=== PATIENT | male | born 1965 | race Caucasian/White ===

== ENCOUNTER → 2016-11-29 | Outpatient (CLI) | payer BC ==
--- NOTE | 2016-11-29 09:41 | US ---
EXAMINATION TYPE: US prostate transrectal DATE OF EXAM: 11/29/2016 9:21 AM COMPARISON: NONE CLINICAL HISTORY: R30.0 dysuria. This examination was performed using the transrectal probe. EXAM MEASUREMENTS: Gland Size: 4.2 x 1.8 x 5.1cm Volume: 20.2 Predicted PSA: 2.4 Actual PSA (if available):exam for dysuria TECHNOLOGIST IMPRESSION: Some calcifications seen at the apex in the peripheral zone, heavily calcif ied central zone, no distinct masses seen. Seminal vesicles are felt within normal limits on initial images. Prostate gland is normal in size. S ome central zone calcifications are present. No worrisome peripheral zone nodule is seen. IMPRESSION: Prostate is within normal limits in size, no worrisome nodules identified.
--- NOTE | 2016-11-29 09:43 | US ---
EXAMINATION TYPE: US renals and bladder DATE OF EXAM: 11/29/2016 9:00 AM COMPARISON: NONE CLINICAL HISTORY: N20.0 stone. Dysuria. EXAM MEASUREMENTS: Right Kidney: 10.1 x 5.4 x 5.1 cm Left Kidney: 9.9 x 5.3 x 5.2 cm TECHNOLOGIST IMPRESSION: Right Kidney: There is nonspecific 4 mm hyperechoic focus lower pole level right kidney to reflect sm all nonobstructing calculus. Left Kidney: inferior pole obscured by bowel gas, no hydro or mass seen Bladder: wnl Bilateral Jets seen: Yes There is no evidence for hydronephrosis at this point in time. No masses are identified on images sa rohith. The urinary bladder is anechoic. Bilateral ureteral jets are seen. IMPRESSION: No hydronephrosis is evident bilaterally. Possible 4 mm nonobstructing right-sided renal calculus low er pole level. Consider CT correlation/confirmation.
== END | disposition home or self-care (01) ==
LOC: RADUSMAIN 08:17
PROVIDERS: ATTEND Family Medicine
DX: N20.0 Calculus of kidney (principal); R30.0 Dysuria
CPT/HCPCS: 76770; 76872

== ENCOUNTER → 2018-04-09 | Outpatient (CLI) | payer BC ==
--- NOTE | 2018-04-09 14:37 | US ---
EXAMINATION TYPE: US kidneys/renal and bladder DATE OF EXAM: 04/09/2018 COMPARISON: Prior renal ultrasound November 29, 2016 CLINICAL HISTORY: N20.0 Calculus of kidney. hx of renal stones and just diagnosed with renal infectio ns. Right flank pain. EXAM MEASUREMENTS: Right Kidney: 10.2 x 5.7 x 5.6 cm Left Kidney: 11.2 x 4.9 x 5.5 cm Right Kidney: Mild hydronephrosis. Two echogenic foci seen. 1- lower pole, nonshadowing - 0.7 x 0.4 cm. 2- Mid medial pole seen in ureter, shadowing = 0.9 x 0.9 cm Left Kidney: wnl Bladder: distended, wnl as visualized Bilateral Jets not seen There is Mild right-sided hydronephrosis. Suspect right-sided renal calculi. No masses are identified on imag es saved. The urinary bladder is anechoic. Left ureter jet is seen on images saved. IMPRESSION: Right-sided nephrolithiasis suspected with new mild right-sided hydronephrosis, cannot exclude obstru cting calculus. Consider CT confirmation.
== END ==
LOC: RADUSWWP 13:28
PROVIDERS: ATTEND Family Medicine
DX: N13.30 Unspecified hydronephrosis (principal)
CPT/HCPCS: 76770

== ENCOUNTER → 2019-06-25 | Outpatient (CLI) | payer BC ==
--- NOTE | 2019-06-25 17:57 | US ---
EXAMINATION TYPE: US kidneys/renal and bladder DATE OF EXAM: 06/25/2019 COMPARISON: 04/09/2018 CLINICAL HISTORY: 53-year-old male N20.0 kidney stone. TECHNIQUE: Multiple sonographic images of the kidneys and bladder are obtained. FINDINGS: EXAM MEASUREMENTS: Right Kidney: 11.9 x 5.9 x 6.3 cm with a centrally located 1.6 x 1.5 x 1.0 cm shadowing calculus in the renal collecting system causing mild hydronephrosis. Left Kidney: 12.7 x 5.5 x 5.6 cm without hydronephrosis. Bladder: wnl Bilateral Jets seen: Yes IMPRESSION: 1. A large central 1.6 cm right renal calculus located within the collecting system causing mild hydr onephrosis. 2. Partial obstruction is suggested given that the right ureteral jet is maintained.
== END | disposition home or self-care (01) ==
LOC: RADUSWWP 15:32
PROVIDERS: ATTEND Family Medicine
DX: N13.2 Hydronephrosis with renal and ureteral calculous obstruction (principal)
CPT/HCPCS: 76770

== ENCOUNTER → 2019-07-05 | Outpatient (CLI) | payer BC ==
--- NOTE | 2019-07-06 08:19 | CT ---
EXAMINATION TYPE: CT abdomen pelvis wo con DATE OF EXAM: 07/05/2019 HISTORY: renal stone, RT side pain, abnormal ultrasound. CT DLP: 382.90 mGycm. Automated Exposure Control for Dose Reduction was Utilized. TECHNIQUE: CT scan of the abdomen and pelvis is performed without oral or IV contrast. COMPARISON: Renal ultrasound June 25, 2019 FINDINGS: Within the limitations of a non-contrast study, the following observations are made. LUNG BASES: No significant abnormality is appreciated. LIVER/GB: No significant abnormality is appreciated. PANCREAS: No significant abnormality is seen. SPLEEN: No significant abnormality is seen. ADRENALS: No significant abnormality is seen. KIDNEYS: No left-sided renal calculi or hydronephrosis. Confirmation of central right renal calculus and collecting system measuring 13 mm long axis axial image 52 causing mild to moderate pyelocaliecta sis. There is mild asymmetric right-sided at least proximal hydroureter without obstructing ureteral calculus seen. No intraluminal calculus in the bladder is present. BOWEL: Sigmoid colonic diverticulosis is present. Incidental normal-appearing appendix from the cecum . No suspicious small or large bowel dilatation. Suboptimal evaluation of bowel without dedicated ent gen contrast. Mild wall thickening sigmoid colon is nonspecific. GENITAL ORGANS: Some central calcifications and prostate gland measuring upper limits of normal in si ze. LYMPH NODES: No greater than 1cm abdominal or pelvic lymph nodes are appreciated. OSSEOUS STRUCTURES: Moderate disc space narrowing with secondary phenomenon L5-S1 level. Additional m oderate multilevel spurring throughout the thoracolumbar spine. Mild to moderate narrowing and spurri ng of both hip joints. OTHER: No significant additional abnormality is seen. IMPRESSION: Findings correlate with ultrasound. There is confirmation of 1.3 cm right renal collectin g system stone causing mild to moderate hydronephrosis. Advise urology referral to assess for lithotr ipsy.
== END | disposition home or self-care (01) ==
LOC: RADCTMAIN 16:51
PROVIDERS: ATTEND Physician Assistant
DX: N20.0 Calculus of kidney (principal); N13.30 Unspecified hydronephrosis
CPT/HCPCS: 74176

== ENCOUNTER → 2019-07-28 | Outpatient (CLI) | payer BC ==
[2019-07-28 08:30] LABS: Basophils # (A) 0.1 k/uL (0-0.2); Basophils % (A) 1 %; Eosinophils # (A) 0.4 k/uL (0-0.7); Eosinophils % (A) 6 %; HCT 40.7 % (39.0-53.0); HGB 14.1 gm/dL (13.0-17.5); Lymphocytes # (A) 1.3 k/uL (1.0-4.8); Lymphocytes % (A) 21 %; MCH 30.2 pg (25.0-35.0); MCHC 34.5 g/dL (31.0-37.0); MCV 87.4 fL (80.0-100.0); Mean Platelet Volume 5.1; Monocytes # (A) 0.4 k/uL (0-1.0); Monocytes % (A) 6 %; Neutrophils % (A) 63 %; Platelet Count 259 k/uL (150-450); RBC 4.66 m/uL (4.30-5.90); RDW 13.7 % (11.5-15.5); WBC 6.3 k/uL (3.8-10.6)
[2019-07-28 08:34] LABS: African American GFR (CKD) >90 (>60 ml/min/1.73 sqM); Anion Gap 12 mmol/L; Blood Urea Nitrogen 18 mg/dL (9-20); Calcium 9.3 mg/dL (8.4-10.2); Carbon Dioxide 23 mmol/L (22-30); Chloride 107 mmol/L (98-107); Glucose 95 mg/dL (74-99); Potassium 4.4 mmol/L (3.5-5.1); Sodium 142 mmol/L (137-145)
[2019-07-28 08:43] LABS: Appearance,Urine Clear (Clear); Bilirubin,Urine Negative (Negative); Blood,Urine Trace (Negative); Color,Urine Light Yellow; Glucose,Urine (UA) Negative (Negative); Ketones,Urine Negative (Negative); Leukocyte Esterase,Urine Trace (Negative); Mucus,Urine Rare /hpf; Nitrite,Urine Negative (Negative); Protein,Urine Negative (Negative); RBC,Urine 2 /hpf (0-5); Specific Gravity,Urine 1.009 (1.001-1.035); Urobilinogen,Urine <2.0 mg/dL (<2.0); WBC,Urine 4 /hpf (0-5)
== END | disposition home or self-care (01) ==
LOC: LABPAT 07:50
PROVIDERS: ATTEND Urology
DX: Z01.812 Encounter for preprocedural laboratory examination (principal); N20.0 Calculus of kidney; N39.0 Urinary tract infection, site not specified
CPT/HCPCS: 80048; 81001; 85025; 87086

== ENCOUNTER 2019-08-04 09:24 | Day surgery (SDC) | payer BC ==
--- NOTE | 2019-08-03 19:53 | P.GSHP ---
History of Present Illness H&P Date: 08/03/19 54 yo male with recurrent kidney infections witha 15 mm right renal stone Treatment options were discussed Because of the infections and the stone size he comes for a right pcnl - Constitutional Constitutional: Denies chills, Denies fever - EENT Eyes: denies blurred vision, denies pain Ears, nose, mouth and throat: Denies headache, Denies sore throat - Cardiovascular Cardiovascular: Denies chest pain, Denies shortness of breath - Respiratory Respiratory: Denies cough, Denies 7 - Gastrointestinal Gastrointestinal: Denies abdominal pain, Denies diarrhea, Denies nausea, Denies vomiting - Genitourinary (Female) Genitourinary: Denies dysuria, Denies hematuria - Genitourinary (Male) Genitourinary: Denies dysuria, Denies hematuria - Musculoskeletal Musculoskeletal: Denies myalgias - Integumentary Integumentary: Denies pruritus, Denies rash - Neurological Neurological: Denies numbness, Denies weakness - Psychiatric Psychiatric: Denies anxiety, Denies depression - Endocrine Endocrine: Denies fatigue, Denies weight change Past Medical History Additional Past Medical History / Comment(s): KIDNEY PAIN FOR THE PAST TWO YEARS. History of Any Multi-Drug Resistant Organisms: None Reported Past Surgical History: Back Surgery Additional Past Surgical History / Comment(s): LUMBAR SURGERY. Past Anesthesia/Blood Transfusion Reactions: No Reported Reaction Past Psychological History: No Psychological Hx Reported Smoking Status: Former smoker Past Alcohol Use History: None Reported Additional Past Alcohol Use History / Comment(s): QUIT ABOUT 2008, SMOKED ABOUT 1/2 PPD. Past Drug Use History: None Reported - Past Family History Mother Family Medical History: No Reported History Medications and Allergies Home Medications Medication Instructions Recorded Confirmed Type Ibuprofen 200 - 400 mg PO Q6H PRN 08/02/19 08/02/19 History Sulfamethox-Tmp 800-160Mg [Bactrim 1 tab PO DAILY 08/02/19 08/02/19 History DS 800-160 mg] Tamsulosin [Flomax] 0.4 mg PO DAILY 08/02/19 08/02/19 History Allergies Allergy/AdvReac Type Severity Reaction Status Date / Time No Known Allergies Allergy Verified 08/02/19 10:52 Surgical - Exam - General well developed, no distress - Eyes PERRL - ENT no hearing loss - Neck no masses - Respiratory normal expansion, normal respiratory effort - Cardiovascular Rhythm: regular - Abdomen Abdomen: soft, non tender - Genitourinary normal penis with no external lesions, testicles present - Integumentary no rash, no growths - Neurologic normal coordination, normal sensation - Musculoskeletal normal gait, normal posture - Psychiatric oriented to time, oriented to person, oriented to place, speech is normal, memory intact Results - Imaging CT scan - abdomen: report reviewed, image reviewed CT scan - pelvis: report reviewed, image reviewed Assessment and Plan Assessment: Impression: Right renal stone, infected Plan: RIght PCNL
[~2019-08-04 09:24] MED LIST: AMPICILLIN 1,000 MG in SODIUM CHLORIDE 0.9% 50 ML IVPB ONE; DEXAMETHASONE SOD PHOSPHATE 10 MG/ML 1 ML VIAL IV ONE; GENTAMICIN 100 MG in SODIUM CHLORIDE 0.9% 100 ML IVPB ONE; HYDROmorphone 0.5 MG/0.5 ML SYRINGE IVP PRN; LIDOCAINE 1% 20 ML VIAL (10MG/ML) FOR IV START INTRADERMA PRN; ONDANSETRON 4 MG/2 ML VIAL IVP ONE; ONDANSETRON 4 MG/2 ML VIAL IVP PRN
--- NOTE | 2019-08-04 09:39 | XR ---
EXAMINATION TYPE: XR KUB DATE OF EXAM: 08/04/2019 COMPARISON: 07/05/2019 CT HISTORY: Presurgical evaluation for renal calculus. TECHNIQUE: KUB projection of the supine abdomen was obtained FINDINGS: Approximately 1.2 x 0.8 cm slight hyperdensity in the region of the right main collecting s ystem correlates with the prior CT of 07/05/2019. This is somewhat ill-defined given the overlying torey l. Lung bases are well aerated. Moderate degenerative changes of the spine. Calcified degenerative ut erine leiomyomas and phleboliths are seen. Moderate degenerative changes of the hip joints. IMPRESSION: 1.2 x 0.8 cm right renal calculus near the expected location of the right renal sinus as seen on the prior CT of 07/05/2019.
[2019-08-04] MEDS: LACTATED RINGERS 1,000 ML IV SCH (11:29)
[2019-08-04] MEDS ORDERED: ePHEDrine SULFATE/0.9% NACL/PF 50 MG/5 ML SYRINGE IV ONE (12:11)
[2019-08-04] MEDS ORDERED: LIDOCAINE 1% INJ 10MG/ML (20 ML MDV) ONE (12:11)
[2019-08-04] MEDS ORDERED: NEOSTIGMINE 1 MG/ML 10 ML VIAL ONE (12:11)
[2019-08-04] MEDS ORDERED: PROPOFOL 10 MG/ML 20 ML VIAL IV ONE (12:11)
[2019-08-04] MEDS ORDERED: fentaNYL (PF) 50 MCG/ML 2 ML AMP ONE (12:11)
[2019-08-04] MEDS ORDERED: ROCURONIUM BROMIDE 10 MG/ML 10 ML VIAL IV ONE (12:11)
[2019-08-04] MEDS ORDERED: SUCCINYLCHOLINE CHLORIDE 100 MG/5 ML SYR IV ONE (12:11)
[2019-08-04] MEDS ORDERED: MIDAZOLAM 2 MG/2 ML VIAL ONE (12:11)
[2019-08-04] MEDS ORDERED: PHENYLEPHRINE-0.9% NACL SYG 1 MG/10 ML SYRINGE ONE (12:11)
[2019-08-04] MEDS ORDERED: GLYCOPYRROLATE 0.2 MG/ML 2 ML VIAL ONE (12:11)
[2019-08-04] MEDS ORDERED: IOPAMIDOL-370 50ML BTL IRRIGATION ONE (12:39)
[2019-08-04] MEDS ORDERED: LACTATED RINGERS 1,000 ML IV ONE ×2 (13:13)
[2019-08-04] MEDS ORDERED: ONDANSETRON 4 MG/2 ML VIAL IVP PRN (14:35)
[2019-08-04] MEDS ORDERED: MAG HYDROX/AL HYDROX/SIMETH 30 ML CUP PO PRN (14:35)
[2019-08-04] MEDS ORDERED: NALOXONE 0.4 MG/ML 1 ML VIAL IV PRN (14:37)
--- NOTE | 2019-08-04 14:42 | P.OP ---
Date of Procedure: 08/04/19 Preoperative Diagnosis: Right renal stone, chronic urine infection Postoperative Diagnosis: Same Procedure(s) Performed: Cystoscopy, placement of ureteral catheter left, percutaneous nephrostomy ((Dr. Gilberto Covarrubias) percutaneous nephrostolithotomy with ultrasound placement of 8 J nephrostomy Anesthesia: IDA Surgeon: Earl Hu Estimated Blood Loss (ml): 200 Pathology: other (Stone) Condition: stable Disposition: PACU Indications for Procedure: The patient is 54. He has a 13 mm right renal pelvic stone and a very complicated delicate intrarenal collecting system. He has had a chronic infection. I suspect the stone was cause of the infection. We discussed treatment options. I felt was important to liberate the patient of the stone completely. In that light he comes for percutaneous nephrostolithotomy, right Description of Procedure: The patient is brought to the operating suite. He is given a successful general endotracheal anesthesia. On the transport gurney cystoscopy and this performed with a 22-Belarusian sheath Foroblique lens. The right ureteral orifice is identified. An 035 wires passed through the right ureteral orifice. I removed the cystoscope and over the wires passed a 5-Belarusian occluding balloon catheter cured to a 16-Belarusian Rodriguez. The patient is placed in prone position with care to airways and extremities. Dr. Covarrubisa of radiology performed percutaneous access to the right lower pole calyx. The stone completely occludes each major infundibulum. Once we can't access we dilate the tract to 30-Belarusian. Pass a rigid scope into the collecting system and remove clot. Through the rigid scope the ultrasonic lithotripter is used to break up the stone into tiny fragments and either grab or suction out. I then pass a flexible cystoscopy the scope through the collecting system and identify a stone in an upper pole calyx which is grasped with a 1.9 stone basket. Ended the procedure there is no remaining stone. 8J nephrostomy tube was placed. The patient is awakened and returned recovery room good condition. He tolerated the procedure well be placed in the hospital postoperatively. Blood loss is approximately 200 mL.
[2019-08-04] MEDS ORDERED: HYDROmorphone PCA 10 MG/50 ML BAG IV PRN (15:30)
[2019-08-04 16:33] VITALS: BMI 27.6
[2019-08-04] MEDS: DEXTROSE 5%-0.45% NACL 1,000 ML IV SCH (16:37)
[2019-08-04] MEDS: ACETAMINOPHEN TAB 325 MG TAB PO PRN (18:36)
[2019-08-05] MEDS: ACETAMINOPHEN TAB 325 MG TAB PO PRN ×2 (00:16→09:40)
[2019-08-05] MEDS: DEXTROSE 5%-0.45% NACL 1,000 ML IV SCH ×2 (00:17→10:37)
[2019-08-05] MEDS: LACTATED RINGERS 1,000 ML IV SCH (01:18)
--- NOTE | 2019-08-05 06:41 | P.DS ---
Providers Attending physician: Earl Hu Primary care physician: [facility] Course: The patient was admitted to the hospital 08/14/2019 for a right percutaneous nephrostolithotomy. He underwent this without difficulty. The urine is cleared nicely. He feels well. I will remove his Rodriguez IV. He'll be discharged home this morning. He'll follow-up in the office on Friday for nephrostomy tube removal. His vital signs are stable. His pain is under control. He'll take Tylenol or Motrin for pain. His condition is good. Patient Condition at Discharge: Good Plan - Discharge Summary Discharge Rx Participant: No New Discharge Prescriptions: No Action Tamsulosin [Flomax] 0.4 mg PO DAILY Sulfamethox-Tmp 800-160Mg [Bactrim DS 800-160 mg] 1 tab PO DAILY Ibuprofen 200 - 400 mg PO Q6H PRN PRN Reason: Pain Acetaminophen [Tylenol] 1,000 mg PO Q6HR PRN PRN Reason: Pain Discharge Medication List Ibuprofen 200 - 400 mg PO Q6H PRN 08/02/19 [History] Sulfamethox-Tmp 800-160Mg [Bactrim DS 800-160 mg] 1 tab PO DAILY 08/02/19 [History] Tamsulosin [Flomax] 0.4 mg PO DAILY 08/02/19 [History] Acetaminophen [Tylenol] 1,000 mg PO Q6HR PRN 08/04/19 [History] Follow up Appointment(s)/Referral(s): Earl Hu MD [STAFF PHYSICIAN] - 1 Week Discharge Disposition: HOME SELF-CARE
[2019-08-05 07:28] VITALS: BP 117/71; PULSE 93; RESP 16; TEMP 98.5
[2019-08-05] MEDS ORDERED: TAMSULOSIN 0.4 MG CAP.ER.24H PO SCH (09:00)
[2019-08-05] MEDS ORDERED: SULFAMETHOX-TMP 800-160MG 1 EACH TAB PO SCH (09:00)
--- NOTE | 2019-08-05 09:21 | FL ---
EXAMINATION TYPE: FL Perc Nephrostomy New Access DATE OF EXAM: 08/04/2019 COMPARISON: NONE HISTORY: Right renal calculus Procedure had been discussed with the patient by Dr. Hu, risks, benefits, alternatives, were dis cussed and any questions were answered. Informed consent was obtained. The patient was in a semipro ne position prepped and draped on the OR table in the usual sterile fashion. Utilizing a 15 cm lengt h Chiba needle a single pass was made into a lower pole posterior calyx under fluoroscopic guidance. An 0.018 guidewire is passed through the needle and there was placement of a 6-Burundian catheter sheat h system. There was conversion to a 0.035 system was performed with passage of a guidewire into the ureter utilizing a directional catheter. A second safety wire was placed. Remaining portion of pro cedure performed by . Approximately 3 minutes and 39 seconds of fluoroscopy was provided. IMPRESSION: 1. Successful intraoperative right nephrostomy prior to nephrolithotomy.
== END 2019-08-05 12:41 | disposition home or self-care (01) ==
LOC: OR 09:24 → 4SSUR 15:12 → OR 08-05 12:41
PROVIDERS: ATTEND Urology
DX: N20.0 Calculus of kidney (principal); N39.0 Urinary tract infection, site not specified; Z87.891 Personal history of nicotine dependence; Z79.899 Other long term (current) drug therapy
CPT/HCPCS: 94760; 82365; 50432; 74018; 50080; C1769 ×4; C1894; C1729 ×2; J2250; J1580; J1100; J2710; J2405; J2001; J3010; J0290; J2370; J0330; J2704; Q9967; 36415; 86850; 86900; 86901

== ENCOUNTER 2020-10-11 10:28 | Emergency (ER) | payer BC ==
[2020-10-11 10:44] VITALS: RESP 18; TEMP 98.4
[2020-10-11] MEDS ORDERED: ACET/COD 300 MG/30 MG STARTER PACK 6 TAB BTL PO STA (11:05)
[2020-10-11] MEDS ORDERED: methylPREDNISolone SOD SUCCI 125 MG/2 ML VIAL IM ONE (11:05)
[2020-10-11] MEDS ORDERED: KETOROLAC 15 MG/ML 1 ML VIAL IM STA (11:05)
--- NOTE | 2020-10-11 11:08 | ED ---
General Adult HPI - General Chief complaint: Back Pain/Injury Stated complaint: Herniated Disk Time Seen by Provider: 10/11/20 10:46 Source: patient, RN notes reviewed Mode of arrival: ambulatory Limitations: no limitations - History of Present Illness Initial comments: 55-year-old male with a past medical history of back pain, kidney stone presents to the emergency room for a chief complaint of left-sided back pain radiating to the left leg. Patient reports that he has had several episodes of similar pain in the past. He did have surgery 25 years ago to repair L5 however in the past few years pain has returned. Patient states that 2 weeks ago he was putting a plow in his truck and felt the pain worsening in his back. States it has continued to cause him pain and normally would go away or if patient has not followed up with primary care or his surgeon. No complaints of bladder bowel changes, numbness or tingling in the groin her buttock, or weakness of the lower extremity. No fevers or chills. Patient has no other complaints at this time including shortness of breath, chest pain, abdominal pain, nausea or vomiting, headache, or visual changes. - Related Data Home Medications Medication Instructions Recorded Confirmed Ibuprofen 200 - 400 mg PO Q6H PRN 08/02/19 08/04/19 Sulfamethox-Tmp 800-160Mg [Bactrim 1 tab PO DAILY 08/02/19 08/04/19 DS 800-160 mg] Tamsulosin [Flomax] 0.4 mg PO DAILY 08/02/19 08/04/19 Acetaminophen [Tylenol] 1,000 mg PO Q6HR PRN 08/04/19 08/04/19 Previous Rx's Medication Instructions Recorded predniSONE 50 mg PO DAILY #5 tablet 10/11/20 Allergies Allergy/AdvReac Type Severity Reaction Status Date / Time No Known Allergies Allergy Verified 10/11/20 10:41 Review of Systems ROS Statement: Those systems with pertinent positive or pertinent negative responses have been documented in the HPI. ROS Other: All systems not noted in ROS Statement are negative. Past Medical History Additional Past Medical History / Comment(s): back, kidney stone History of Any Multi-Drug Resistant Organisms: None Reported Past Surgical History: Back Surgery Additional Past Surgical History / Comment(s): lithotripsy Past Psychological History: No Psychological Hx Reported Smoking Status: Current every day smoker Past Alcohol Use History: None Reported Past Drug Use History: Marijuana General Exam Limitations: no limitations General appearance: alert, in no apparent distress Head exam: Present: atraumatic, normocephalic, normal inspection Eye exam: Present: normal appearance, PERRL, EOMI. Absent: scleral icterus, conjunctival injection, periorbital swelling ENT exam: Present: normal exam, mucous membranes moist Neck exam: Present: normal inspection, full ROM. Absent: tenderness, meningismus, lymphadenopathy Respiratory exam: Present: normal lung sounds bilaterally. Absent: respiratory distress, wheezes, rales, rhonchi, stridor Cardiovascular Exam: Present: regular rate, normal rhythm, normal heart sounds. Absent: systolic murmur, diastolic murmur, rubs, gallop, clicks GI/Abdominal exam: Present: soft, normal bowel sounds. Absent: distended, tenderness, guarding, rebound, rigid Extremities exam: Present: other (DP pulse 2+ left lower extremity, capillary refill less than 2 seconds. Sensation intact left lower extremity. Strength 5 out of 5.) Back exam: Present: paraspinal tenderness (Left-sided lumbar paraspinal tenderness). Absent: CVA tenderness (R), CVA tenderness (L), vertebral tenderness Neurological exam: Present: alert Course Vital Signs 10/11/20 10/11/20 10:41 11:32 Temperature 98.4 F Pulse Rate 73 75 Respiratory 18 18 Rate Blood Pressure 180/116 141/103 O2 Sat by Pulse 100 98 Oximetry Medical Decision Making - Medical Decision Making Patient initially hypertensive however this did improve after pain medication given. He does remain slightly hypertensive likely secondary to pain. Patient does not have any red flag symptoms. This is an exacerbation of his chronic pain. He was given IM steroid and Toradol. He will be given Tylenol 3 for pain at night. His is requesting an x-ray for their insurance. Apparently it requires x-rays or MRI. She called primary care and he will see him tomorrow and refer him to a specialist. I will also give her referral. He will return here for any worsening symptoms or weakness. - Radiology Data Radiology results: report reviewed X-ray of the lumbar spine was obtained. There is fairly moderate multilevel anterior and lateral spurring and disc space narrowing seen again. Moderate multilevel degenerative changes without significant progression from 2019 CT. Disposition Clinical Impression: Mechanical back pain, Radiculopathy Disposition: HOME SELF-CARE Condition: Good Instructions (If sedation given, give patient instructions): Acute Low Back Pain (ED) Additional Instructions: Please take steroid as directed. Take Tylenol for pain. If pain is severe take Tylenol [address] or operate machinery while taking this. Please follow-up with primary care and orthopedics for MRI. Return to the emergency room for any worsening symptoms such as bladder or bowel changes, numbness or tingling in the groin or buttock, fevers or weakness of the lower extremities Prescriptions: predniSONE 50 mg PO DAILY #5 tablet Is patient prescribed a controlled substance at d/c from ED?: No Referrals: Coral Douglas DO [Doctor of Osteopathic Medicine] - 1-2 days Time of Disposition: 11:57
[2020-10-11 11:33] VITALS: BP 141/103; PULSE 75
--- NOTE | 2020-10-11 11:58 | XR ---
EXAMINATION TYPE: XR lumbar spine 2 or 3V DATE OF EXAM: 10/11/2020 CLINICAL HISTORY: Low back pain. TECHNIQUE: Frontal and lateral images of the lumbar spine are obtained. COMPARISON: CT abdomen and pelvis July 05, 2019 FINDINGS: There are 5 lumbar type vertebral bodies redemonstrated. The lumbar spine shows stable an d straightened alignment without evidence of acute fracture or dislocation. Vertebral body heights re main are within normal limits. Fairly moderate multilevel anterior and lateral spurring. [id number] rate multilevel disc space narrowing again seen. Uncovertebral facet degenerative changes in the mid to lower lumbar spine redemonstrated. The overlying soft tissue appears unremarkable. IMPRESSION: As above. Moderate multilevel degenerative changes without significant progression from [address]
== END 2020-10-11 12:16 | disposition home or self-care (01) ==
LOC: EC 10:28
DX: G89.29 Other chronic pain (principal); M54.9 Dorsalgia, unspecified; M54.10 Radiculopathy, site unspecified; I10 Essential (primary) hypertension; F17.200 Nicotine dependence, unspecified, uncomplicated; Z79.899 Other long term (current) drug therapy; Z87.442 Personal history of urinary calculi
CPT/HCPCS: 72100; 99283; 96372 ×2; J2930; J1885